=== PATIENT | female | born 1950 ===

== ENCOUNTER 2021-02-06 16:12 | Inpatient (IN) | payer OTHER ==
[~2021-02-06] VITALS: Ht 157.5 cm; Wt 113.4 kg
[2021-02-06] MEDS ORDERED: PROTONIX40 MG (16:25)
[2021-02-06] MEDS ORDERED: ELIQUIS5 MG (16:25)
[2021-02-06] MEDS ORDERED: ISOSORBIDE MONO60 MG (16:25)
[2021-02-06] MEDS ORDERED: CARDIZEM CD240 MG (16:25)
[2021-02-06] MEDS ORDERED: TOPROL XL50 M1 (16:26)
[2021-02-06] MEDS ORDERED: LEVO-T50 MCG (16:26)
[2021-02-06] MEDS ORDERED: JARDIANCE25 MG (16:26)
[2021-02-06] MEDS ORDERED: TORSEMIDE100 MG (16:27)
[2021-02-06] MEDS ORDERED: MONTELUKAST SODI4 M1 (16:28)
[2021-02-06] MEDS ORDERED: TROSPIUM CHLORI20 MG (16:28)
[2021-02-06] MEDS ORDERED: POTASSIUM600 MG (16:28)
[2021-02-06] MEDS ORDERED: CHILDREN'S ASPI81 MG (16:28)
[2021-02-06] MEDS ORDERED: ATORVASTATIN CA80 MG (16:28)
[2021-02-06] MEDS ORDERED: BYDUREON B2 MG/0.85 (16:29)
[2021-02-06] MEDS ORDERED: NASAL MIST126 ML (16:29)
== END 2021-02-14 15:05 | disposition home or self-care (01) | DRG 637 ==
LOC: ER 16:12 → SEC-K 21:41 → SURG 21:41 → MEDJ 02-07 21:03
PROVIDERS: ADMIT Internal Medicine; ATTEND Internal Medicine
PROC: 4A12X4Z Monitoring of Cardiac Electrical Activity, External Approach (ICD-10-PCS; principal; 2021-02-07)
PROC: B24BZZZ Ultrasonography of Heart with Aorta (ICD-10-PCS; 2021-02-07)
PROC: 3E0F7SF Introduction of Other Gas into Respiratory Tract, Via Natural or Artificial Opening (ICD-10-PCS; 2021-02-07)
PROC: 0JDR3ZZ Extraction of Left Foot Subcutaneous Tissue and Fascia, Percutaneous Approach (ICD-10-PCS; 2021-02-08)
DX: E11.621 Type 2 diabetes mellitus with foot ulcer (principal); A41.9 Sepsis, unspecified organism; I50.23 Acute on chronic systolic (congestive) heart failure; L03.116 Cellulitis of left lower limb; L97.429 Non-pressure chronic ulcer of left heel and midfoot with unspecified severity; I48.20 Chronic atrial fibrillation, unspecified; I13.0 Hypertensive heart and chronic kidney disease with heart failure and stage 1 through stage 4 chronic kidney disease, or unspecified chronic kidney disease; I25.10 Atherosclerotic heart disease of native coronary artery without angina pectoris; W01.0XXA Fall on same level from slipping, tripping and stumbling without subsequent striking against object, initial encounter; E66.01 Morbid (severe) obesity due to excess calories; Z20.822 Contact with and (suspected) exposure to COVID-19; E11.65 Type 2 diabetes mellitus with hyperglycemia; N18.32 Chronic kidney disease, stage 3b; N17.8 Other acute kidney failure; B95.1 Streptococcus, group B, as the cause of diseases classified elsewhere; B96.5 Pseudomonas (aeruginosa) (mallei) (pseudomallei) as the cause of diseases classified elsewhere; B95.2 Enterococcus as the cause of diseases classified elsewhere; Z79.01 Long term (current) use of anticoagulants; Z95.5 Presence of coronary angioplasty implant and graft; Z91.11 Patient's noncompliance with dietary regimen; Z79.4 Long term (current) use of insulin